=== PATIENT | female | born 1995 | race African-American/Black ===

== ENCOUNTER 2018-10-19 15:37 | Emergency (ER) | payer MEDICAID ==
[~2018-10-19] VITALS: Ht 160 cm; Wt 96.0 kg
[2018-10-19] MEDS ORDERED: IBUPROFEN 800MG TABLET PO ONE (17:00)
[2018-10-19 17:05] VITALS: BP 111/78
== END 2018-10-19 18:25 | disposition home or self-care (01) ==
LOC: ER 15:37
DX: M25.571 Pain in right ankle and joints of right foot (principal)
CPT/HCPCS: 73630; 81025; 99283

== ENCOUNTER 2020-12-05 22:34 | Emergency (ER) | payer MEDICAID ==
[~2020-12-05] VITALS: Ht 162.6 cm; Wt 105.0 kg
[2020-12-06] MEDS ORDERED: IBUP-2029 MT (02:03)
[2020-12-06 02:13] VITALS: BP 126/84
== END 2020-12-06 02:14 | disposition home or self-care (01) ==
LOC: ER 22:34
DX: R51.9 Headache, unspecified (principal); H57.11 Ocular pain, right eye
CPT/HCPCS: 81025; 99284

== ENCOUNTER 2022-10-07 12:09 | Emergency (ER) | payer MEDICAID ==
[~2022-10-07] VITALS: Ht 162.6 cm; Wt 98.0 kg
[~2022-10-07 12:09] MED LIST: IBUP-2029 MT
[2022-10-07 15:21] VITALS: BP 119/75
== END 2022-10-07 15:23 | disposition home or self-care (01) ==
LOC: ER 12:15
DX: R07.89 Other chest pain (principal)
CPT/HCPCS: 93005; 99283